=== PATIENT | female | born 1990 ===

== ENCOUNTER 2021-04-02 03:34 | Outpatient (CLI) | payer MEDICAID ==
[2021-04-02 04:29] LABS: MICROSCOPIC NOT IND
== END 2021-04-02 05:30 | disposition home or self-care (01) ==
LOC: LDOP 03:34
PROVIDERS: ATTEND Obstetrics & Gynecology
DX: O26.899 Other specified pregnancy related conditions, unspecified trimester (principal); R10.9 Unspecified abdominal pain; Z3A.00 Weeks of gestation of pregnancy not specified
CPT/HCPCS: 59025; 81003; 87077; 87086; 87147